=== PATIENT | female | born 1970 | race Caucasian/White ===

== ENCOUNTER 2021-05-23 02:50 | Day surgery (SDC) | payer OTHER, SELFPAY ==
[2021-05-09 15:15] VITALS: BMI 47.8
[2021-05-23 12:02] LABS: Glucose Point of Care 204 mg/dl (65-105)
--- NOTE | 2021-05-23 12:12 | WPDANESEPPF ---
Anes - Initial Pre Proc Eval Procedure: Operation Date: 05/23/21 12:45 Proposed Procedures p Esophagogastroduodenoscopy - Hayden Tirado MD Date/Time: 05/23/21 12:12 Surgeon: Hayden Tirado MD Pre Op Diagnosis: epigastric pain, anemia R10.3 D64.9 Patient Data Age: 50 Gender: F Height: 1.7 m Weight: 136.5 kg Allergies Allergy/AdvReac Type Severity Reaction Status Date / Time Sulfa (Sulfonamide Allergy Mild Rash Verified 05/23/21 11:42 Antibiotics) levofloxacin Allergy Rash Verified 05/23/21 11:42 metronidazole [From Flagyl] Allergy Rash Verified 05/23/21 11:42 meperidine AdvReac Unknown Vomiting Verified 05/23/21 11:42 morphine AdvReac Unknown Vomiting Verified 05/23/21 11:42 Home Medications Medication Instructions Recorded Confirmed Type blood sugar diagnostic #300 each 02/23/20 04/11/21 Rx pen needle, diabetic 31 gauge x See Rx Instructions .ROUTE 06/12/20 04/11/21 Rx 3/16 .COMPLEX #300 each insulin syringe-needle U-100 1 mL #100 ea 10/21/20 04/11/21 Rx 31 gauge x 5/16 buspirone 5 mg tablet 5 mg PO BID #180 tablet 03/06/21 05/09/21 Rx metoprolol tartrate 50 mg tablet 50 mg PO Q12H #180 tablet 03/06/21 05/09/21 Rx amlodipine 5 mg-benazepril 10 mg 1 cap PO DAILY #90 cap 04/07/21 05/09/21 Rx capsule spironolactone 25 mg tablet 25 mg PO DAILY #90 tablet 04/07/21 05/09/21 Rx insulin glargine 100 unit/mL 60 unit SUBCUT DAILY #50 ml 04/11/21 05/09/21 Rx subcutaneous solution omeprazole 20 mg capsule,delayed 20 mg PO DAILY #90 cap 04/11/21 05/09/21 Rx release cholecalciferol (vitamin D3) 1,250 1,250 mcg PO WEEKLY #12 cap 04/18/21 05/09/21 Rx mcg (50,000 unit) capsule citalopram 20 mg tablet 20 mg PO DAILY #90 tablet 04/21/21 05/09/21 Rx insulin lispro 100 unit/mL 14 unit SUBCUT TID #45 ml 04/28/21 05/09/21 Rx subcutaneous pen aspirin 81 mg PO HS 05/09/21 05/09/21 History metformin 2,000 mg PO QHS 05/09/21 05/09/21 History gbrvpqdkkoyl-qmpr-wnyue acid 1 tablet PO DAILY 05/09/21 05/09/21 History [[facility] Women] zolpidem 12.5 mg tablet,extended 12.5 mg PO QHS #90 tablet 05/19/21 Rx release,multiphase Laboratory Tests 05/23/21 11:48 POC Capillary Glucose 204 mg/dl H mg/dl (65-105) Patient hx anesthesia problems: none Family hx anesthesia problems: none PMFSH Past Medical History Medical History (Updated 05/01/21 @ 10:22 by Hayden Tirado MD) Adenomatous colon polyp Colon cancer screening Colon, diverticulosis Diabetic neuropathy Dyslipidemia Fatty liver Gastritis GERD (gastroesophageal reflux disease) IDDM (insulin dependent diabetes mellitus) Insomnia Obesity, morbid, BMI 40.0-49.9 Upper abdominal pain following cholangiogram Family History Family History Grandparent Diabetes mellitus Grandparent Cerebrovascular accident Hypertension Social History Social History Smoking status: Never smoker Second hand tobacco smoke exposure: No Alcohol intake: never Living arrangements: with family Spiritual care concerns: No Anes - Eval Final PreProcedure Day of Procedure 05/23/21 12:12 Patient weight: morbidly obese Heart: regular rate and rhythm Lungs: clear to auscultation Airway: Mallampati scale class III Neurological: alert and oriented Last oral intake: >/= 8 hours ASA classification: III Emergent: no Anesthetic plan: proceed Anesthesia type and monitoring: general GIVS and standard monitoring Informed Consent: The patient's anesthetic plan and its attendant risks and benefits were discussed with the patient/family/POA. Questions were solicited and answers provided to the satisfaction of the patient/family/POA.
[2021-05-23] MEDS: LACTATED RINGERS 1,000 ML 150 ML IV CONT (12:19)
[2021-05-23 12:20] VITALS: BP 173/97; PULSE 89; RESP 18; TEMP 36.1; O2SAT 98
--- NOTE | 2021-05-23 12:44 | WPDHPUPDATE1 ---
History and Physical Update Update Date/Time: 05/23/21 12:44 History and Physical has been reviewed, including an updated exam of the patient. There are NO changes in the patient's condition. Risks, benefits, and alternatives have been discussed and questions answered. Patient agrees to proceed with procedure.
[2021-05-23 13:08] VITALS: BP 113/68; PULSE 82; RESP 18; O2SAT 99
[2021-05-23 13:18] VITALS: BP 112/68; PULSE 80; RESP 20; O2SAT 99
[2021-05-23 13:29] VITALS: BP 126/72; PULSE 84; RESP 24; O2SAT 100
== END 2021-05-23 13:37 | disposition home or self-care (01) ==
PROVIDERS: PCP Family Medicine; Visit Provider Internal Medicine Gastroenterology
PROC: 0DJ08ZZ Inspection of Upper Intestinal Tract, Via Natural or Artificial Opening Endoscopic (ICD-10-PCS; CPT 43235; principal; 2021-05-23 12:45)
DX: D64.9 Anemia, unspecified (principal); K29.50 Unspecified chronic gastritis without bleeding; K44.9 Diaphragmatic hernia without obstruction or gangrene; K21.9 Gastro-esophageal reflux disease without esophagitis; K57.30 Diverticulosis of large intestine without perforation or abscess without bleeding; K76.0 Fatty (change of) liver, not elsewhere classified; E11.40 Type 2 diabetes mellitus with diabetic neuropathy, unspecified; E78.5 Hyperlipidemia, unspecified; E66.01 Morbid (severe) obesity due to excess calories; G47.00 Insomnia, unspecified; R10.13 Epigastric pain; Z86.010 Personal history of colon polyps; Z79.1 Long term (current) use of non-steroidal anti-inflammatories (NSAID)
CPT/HCPCS: 43239; 82948; 88305; 88342; J2704; J7120

== ENCOUNTER 2022-11-20 12:33 | Outpatient (CLI) | payer OTHER, SELFPAY ==
[2022-11-20 18:35] LABS: Basophils Percent Auto 0.5 % (0.2-1.2); Eosinophils Absolute Auto 0.1 K/mm3 (0-0.3); Hematocrit 37.1 % (37.0-47.0); Hemoglobin 11.5 g/dL (12.0-15.0); Immature Granulocyte Absolute 0.02 K/mm3 (0.00-0.031); Immature Granulocyte Percent A 0.2 % (0-0.5); Lymphocytes Absolute Auto 2.53 K/mm3 (0.9-3.2); Lymphocytes Percent Auto 31.3 % (18.3-44.2); Mean Corpuscular Hemoglobin 25.3 pg (26-34); Mean Corpuscular Volume 81.5 fl (80-100); Monocytes Absolute Auto 0.4 K/mm3 (0.1-0.6); Monocytes Percent Auto 4.6 % (2.6-8.5); Neutrophils Percent Auto 62.4 % (45.5-73.1); Platelet Count Result 308 k/mm3 (150-375); Red Blood Count 4.55 M/mm3 (4.2-5.4); Red Cell Distribution Width 16.4 % (11.5-14.5); White Blood Count 8.1 K/mm3 (4.5-10.0)
[2022-11-20 18:45] LABS: Alanine Aminotransferase 25 U/L (6-35); Albumin Level 4.4 g/dL (3.5-5.1); Alkaline Phosphatase 77 U/L (38-126); Anion Gap 9 mmol/L (8-16); Aspartate Amino Transferase 28 U/L (14-36); Bilirubin,Total 0.6 mg/dL (0.2-1.3); Blood Urea Nitrogen 11 mg/dL (7-17); Calcium 9.2 mg/dL (8.4-10.2); Carbon Dioxide 30 mmol/L (22-30); Chloride 98 mmol/L (98-107); Cholesterol 199 mg/dL (0-200); Estimated Glomerular Filt Rate > 60; Glucose 144 mg/dL (65-110); HDL Direct 38 mg/dL; Potassium 4.2 mmol/L (3.4-5.0); Sodium 137 mmol/L (137-145); Triglycerides 211 mg/dL (<150)
[2022-11-20 18:55] LABS: Vitamin D 25 Hydroxy 40.2 ng/mL
[2022-11-20 18:56] LABS: LDL Cholesterol Direct 125 mg/dL
[2022-11-20 19:14] LABS: Thyroid Stimulating Hormone 0.978 uIU/mL (0.465-4.680)
[2022-11-20 19:58] LABS: Creatinine Urine 129.4 mg/dL
[2022-11-20 20:03] LABS: MALB Creatinine Ratio 8.1 mg/g (0-30); Microalbumin Urine Random 10.5 mg/L (0-16.7)
== END 2022-11-20 12:34 | disposition home or self-care (01) ==
LOC: ANHGOSHLAB 12:35
PROVIDERS: PCP Family Medicine; Visit Provider Nurse Practitioner Family
DX: Z00.00 Encounter for general adult medical examination without abnormal findings (principal); I10 Essential (primary) hypertension; E11.9 Type 2 diabetes mellitus without complications; E78.5 Hyperlipidemia, unspecified; E55.9 Vitamin D deficiency, unspecified
CPT/HCPCS: 36415; 80053; 80061; 82043; 82306; 83036; 84443; 85025

== ENCOUNTER 2023-06-18 09:41 | Outpatient (CLI) | payer OTHER, SELFPAY ==
[2023-06-18 16:39] LABS: Basophils Percent Auto 0.4 % (0.2-1.2); Eosinophils Absolute Auto 0.1 K/mm3 (0-0.3); Eosinophils Percent Auto 1.1 % (0-4.4); Hematocrit 35.7 % (37.0-47.0); Hemoglobin 11.1 g/dL (12.0-15.0); Immature Granulocyte Absolute 0.01 K/mm3 (0.00-0.031); Immature Granulocyte Percent A 0.1 % (0-0.5); Lymphocytes Absolute Auto 1.91 K/mm3 (0.9-3.2); Mean Corpuscular HGB Conc 31.1 g/dl (32-36); Mean Corpuscular Hemoglobin 25.9 pg (26-34); Mean Corpuscular Volume 83.4 fl (80-100); Mean Platelet Volume 9.8 fl (7.4-10.4); Monocytes Absolute Auto 0.3 K/mm3 (0.1-0.6); Monocytes Percent Auto 4.4 % (2.6-8.5); Neutrophils Absolute Auto 4.7 K/mm3 (1.3-6.7); Platelet Count Result 298 k/mm3 (150-375); Red Blood Count 4.28 M/mm3 (4.2-5.4); Red Cell Distribution Width 15.9 % (11.5-14.5); White Blood Count 7.1 K/mm3 (4.5-10.0)
[2023-06-18 19:45] LABS: Vitamin D 25 Hydroxy 38.5 ng/mL
[2023-06-18 19:55] LABS: Alanine Aminotransferase 26 U/L (6-35); Albumin Level 4.4 g/dL (3.5-5.1); Alkaline Phosphatase 60 U/L (38-126); Anion Gap 10 mmol/L (8-16); Aspartate Amino Transferase 31 U/L (14-36); Bilirubin,Total 0.4 mg/dL (0.2-1.3); Blood Urea Nitrogen 11 mg/dL (7-17); Carbon Dioxide 27 mmol/L (22-30); Chloride 102 mmol/L (98-107); Cholesterol 188 mg/dL (0-200); Estimated Glomerular Filt Rate > 60; Glucose 132 mg/dL (65-110); HDL Direct 36 mg/dL; Sodium 139 mmol/L (137-145); Triglycerides 192 mg/dL (<150)
[2023-06-18 20:05] LABS: LDL Cholesterol Direct 118 mg/dL
[2023-06-18 20:23] LABS: Thyroid Stimulating Hormone 0.739 uIU/mL (0.465-4.680)
[2023-06-18 20:35] LABS: Hemoglobin A1C 5.9 % (<5.7)
== END 2023-06-18 09:42 | disposition home or self-care (01) ==
LOC: ANHGOSHLAB 09:43
PROVIDERS: PCP Family Medicine; Visit Provider Nurse Practitioner Family
DX: Z00.00 Encounter for general adult medical examination without abnormal findings (principal); Z13.1 Encounter for screening for diabetes mellitus; I10 Essential (primary) hypertension; Z13.21 Encounter for screening for nutritional disorder; Z13.220 Encounter for screening for lipoid disorders; Z13.29 Encounter for screening for other suspected endocrine disorder; E55.9 Vitamin D deficiency, unspecified; Z79.4 Long term (current) use of insulin
CPT/HCPCS: 36415; 80053; 80061; 82306; 83036; 84443; 85025

== ENCOUNTER 2024-12-04 15:15 | Outpatient (CLI) | payer OTHER, SELFPAY ==
--- OUTSIDE RECORDS SUMMARY | 2024-12-04 18:01 | XMS_ITS | Encounter Summary ---
Author Organization [facility] Healthcare Address [address] [place] [address] Care Team Providers Care Builder'S Labourer Name Role Phone Cat Persaud MD Primary Care Provider Encounter Details Date Type Department Care Team (Late st Contact Info) Description 09/24/2020 Telephone [facility] [address] [place] [id number] Ivelisse Mack, RT Social History Tobacco Use Types Packs/Day Years Used Date Smoking Tobacco: Never Smokeless Tobacco: Never Alcohol Use Standard Drinks/Week Comments No 0 (1 standard drink = 0.6 oz pur e alcohol) Comments No Sex and Gender Information Value Date Recorded Sex Assigned at Not on file Legal 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 Author [facility] Chronic Pain Care Plan Chronic Care Management Worsening( 3:31 PM CDT) No Dayanna Stallworth RN Note: Problem: Chronic Pain Goals: 1. Minimize further functional decline 2. Maximize quality of life 3. Control pain Strategies: - Activity/exercise program recommendation - Conservative stepwise pain medicine strategy with multi-disciplinary approach - Recommend healthy lifestyle strategies and compensatory methods as needed Reduce the likelihood of falling Lifestyle No Stephy Reaves, ABRAHAM Note: Below are four things you can do to prevent falls: 1. Begin an exercise program to improve your leg strength & balance 2. Ask your doctor or pharmacist to review your medicines 3. Get annual eye check-ups & update your eyeglasses 4. Make your home safer by: Removing clutter & tripping hazards Putting railings on all stairs & adding grab bars in the bathroom Having good lighting, especially on stairs Contact your local community or senior center for information on exercise, fall prevention programs, or options for improving home safety. documented as of this encounter Visit Diagnoses Not on filedocumented in this encounter Care Teams Builder'S Labourer Relationship Specialty Start Date End Date Cat Persaud MD PCP - General 10/15/17 documented as of this encounter
--- OUTSIDE RECORDS SUMMARY | 2024-12-04 18:01 | XMS_ITS | Clinical Summary ---
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 Name Role Phone Cat Persaud MD Primary Care Provider Allergies Active Allergy Reactions Criticality Noted Date Comments Propoxyphene-Acetaminoph en Vomiting Low 08/09/2019 Meperidine Hives,Nausea only Medium 02/25/2015 Reaction: Hives, , Reaction: Nausea, Metronidazole Hives Medium Levofloxacin Swelling,Angioedema High 10/22/2023 Morphine Hives,Nausea only Reaction: Hives, , Reaction: Nausea, Sulfanilamide Hives Reaction: Hives, Medications amlodipine-virginia zepril (LOTREL 5-10) 5-10 mg per capsule take 1 capsule by oral route every day 0 0 4 Active blood glucose diagnostic (ACCU-CHEK VANESSA) strip CHECK BLOOD SUGAR FOUR TIMES A DAY 150 Container 5 3 Active insulin lispro (HumaLOG KwikPen) 100 unit/mL insulin pen inject 14units tid daily 3 Box 3 5 Active Additional Information Patient taking differently: (No dose reported), subcutaneous, 10-12 units per meal 3x a day - sliding scale , Indications: type 2 diabetes mellitus, Informant: Self, Reported on 11/14/2024 citalopram (CeleXA) 20 mg tabletIndicatio ns:Anxiety with Depression Take 1 tablet (20 mg total) by mouth every morning Active spironolactone (ALDACTONE) 25 mg tabletIndicatio ns:swelling Take 1 tablet (25 mg total) by mouth furniture sales consultant before breakfast Active metoprolol tartrate (LOPRESSOR) 50 mg immediate release tabletIndicatio ns:hypertension Take 1 tablet (50 mg total) by mouth 2 (two) times a day 0 Active BD Ultra-Fine Mini Pen Needle 31 gauge x 3/16 needle 0 Active BD Insulin Syringe Ultra-Fine 1 mL 31 gauge x 5/16 syringe 0 Active SEMGLEE-yfgn 100 unit/mL (3 mL) pen for injectionIndica tions:dm2 Inject 30 Units under the skin furniture sales consultant before breakfast 2 Active buPROPion (WELLBUTRIN) 75 mg tabletIndicatio ns:Anxiety with Depression Take 1 tablet (75 mg total) by mouth furniture sales consultant before breakfast 2 Active zolpidem CR (AMBIEN CR) 12.5 mg CR tabletIndicatio ns:Insomnia Take 1 tablet (12.5 mg total) by mouth nightly 3 Active Ozempic 1 mg/dose (4 mg/3 mL) pen injector injectionIndica tions:Weight Loss Management for Obese Patient (BMI >= 30) Inject 1 mg under the skin once a week Wednesday 4 Active pregabalin (LYRICA) 75 mg capsule Take 1 capsule (75 mg total) by mouth 2 (two) times a day 28 capsule 4 Active metFORMIN (FORTAMET) 500 mg 24 hr tabletIndicatio ns:type 2 diabetes mellitus Take 2 tablets (1,000 mg total) by mouth nightly Take 2 tablets daily 4 Active omeprazole (PriLOSEC) 20 mg capsuleIndicati ons:gerd Take 1 capsule (20 mg total) by mouth furniture sales consultant before breakfast 4 Active busPIRone (BUSPAR) 5 mg tabletIndicatio ns:Generalized Anxiety Disorder Take 1 tablet (5 mg total) by mouth 2 (two) times a day 4 Active acetaminophen (TYLENOL) 500 mg tablet Take 2 tablets (1,000 mg total) by mouth every 8 (eight) hours 90 tablet 4 Active aspirin 81 mg enteric coated tablet Take 1 tablet (81 mg total) by mouth 2 (two) times a day 60 tablet 4 Active senna-docusate (PERICOLACE) 8.6-50 mg Take 2 tablets by mouth 2 (two) times a day May increase to 4 tablets twice daily if needed. HOLD medication for diarrhea. 80 tablet 1 4 Active Additional Information Patient not taking.Reported on 11/14/2024 meloxicam (MOBIC) 15 mg tablet Take 1 tablet (15 mg total) by mouth daily 30 tablet 4 Active Additional Information Patient not taking.Reported on 11/14/2024 cefadroxil (DURICEF) 500 mg capsule Take 1 capsule (500 mg total) by mouth 2 (two) times a day 28 capsule 4 Active hydrOXYzine (VISTARIL) 50 mg capsule Take 1 capsule (50 mg total) by mouth every 6 (six) hours as needed (Pain) 60 capsule 4 Active Additional Information Patient not taking.Reported on 11/14/2024 nitrofurantoin monohydrate (MACROBID) 100 mg capsule TAKE 1 CAPSULE BY MOUTH EVERY 12 HOURS WITH FOOD FOR 7 DAYS 4 Active cephalexin (KEFLEX) 500 mg capsule Take 1 capsule (500 mg total) by mouth 2 (two) times a day 4 Active traMADoL (ULTRAM) 50 mg tabletIndicatio ns:Status post right hip replacement Take 1 tablet (50 mg total) by mouth every 6 (six) hours as needed for pain (1st line for pain) 40 tablet 4 Active Additional Information Patient not taking.Reported on 11/14/2024 oxyCODONE (ROXICODONE) 5 mg immediate release tabletIndicatio ns:Pain Take 1 tablet (5 mg total) by mouth every 4 (four) hours as needed for pain (2nd line for pain. May repeat in 1 hour for uncontrolled or increasing pain. MAX 2 tablets within 4 hours.) 30 tablet 4 Active Additional Information Patient not taking.Reported on 11/14/2024 Active Problems Problem Noted Date Diagnosed Date Osteoarthritis of right hip, unspecified osteoarthritis type 11/10/2023 HTN (hypertension) 11/02/2023 Class 3 severe obesity in adult 11/02/2023 Primary osteoarthritis of right hip 10/19/2023 Other spondylosis with radiculopathy, lumbar reg ion 10/20/[address] scan 06/10/2021 BMI 45.0-49.9, adult ([facility]) 03/29/2020 Bilateral hip pain 08/10/2019 Osteoarthritis of both hips 08/10/2019 Primary osteoarthritis of both knees 06/13/2019 Osteoarthritis resulting from right hip dysplasi a 06/13/2019 Chronic bilateral low back pain with right-sided sciatica 05/18/2018 Lumbar disc displacement without myelopathy 04/21 DDD (degenerative disc disease), lumbar 05/18/20 18 Arthritis 02/25/2015 Headache(784.0) 02/25/2015 Hiatal hernia 02/25/2015 Mitral valve disease 02/25/2015 Type 2 diabetes mellitus 02/03/2014 Overview (12/24/2016): DMII WO CMP UNCNTRLD Tear of lateral cartilage or meniscus of knee, c urrent 10/20/2013 Overview (12/24/2016): TEAR LAT MENISC KNEE-CUR Current tear of medial cartilage AND/OR meniscus of knee 10/20/2013 Overview (12/24/2016): TEAR MED MENISC KNEE-CUR Knee pain 10/20/2013 Overview (12/24/2016): Pain in knee Acne 10/27/2011 Resolved Problems Problem Noted Date Diagnosed Date Resolved Date Chronic pain 02/25/2015 10/20/2022 Encounters Date Type Department Care Team Description 11/14/2024 1:45 PM PRODUCT REPRESENTATIVE Office Visit [facility] Orthopaedic Surgery [address] [facility] Medical Office Building [address] [place] [id number] Wilfred Roberts MD History of arthroplasty of right hip (Primary Dx) 11/14/2024 1:15 PM PRODUCT REPRESENTATIVE - 11/14/2024 11:59 PM PRODUCT REPRESENTATIVE Hospital Encounter [facility] [address] [place] [id number] History of arthroplasty of right hip Discharge Disposition: Discharge to home or self care 10/08/2024 4:02 PM PRODUCT REPRESENTATIVE - 10/08/2024 11:59 PM PRODUCT REPRESENTATIVE Hospital Encounter [id number] [place] [address] Upper abdominal pain, unspecified Discharge Disposition: Discharge to home or self care from Last 3 Months Immunizations Immunization Administration Dates Next Due Tdap 12/30/2016 Surgical History Surgery Date Site/Laterality Comments HYSTERECTOMY 09/20/2005 - 09/19/2006 Hysterectomy CHOLECYSTECTOMY 09/20/2007 - 09/19/2008 Cholecystectomy [place] NJX AA&/STRD TFRML EPI LUMBAR/SACRAL 1 LEVEL Corticosteroid Inj Transforaminal Approach Lumbar W/ Fluoroscopic Guidance - (Added by TW Conv) BREAST BIOPSY Left FLUORO GUIDED ASPIRATION OR INJECTION LARGE JOINT BILATERAL 06/03/2022 Bilateral Medical History Medical History Date Comments Hypertension Hypertension Type 2 diabetes mellitus (HCC) D iabetes type 2 Hx Other Medical hiatal hernia Hx Other Medical neuropathy of f eet Diabetes mellitus (HCC) Diabetes Gastroesophageal reflux disease GERD Atrial fibrillation (HCC) Atrial fibrillation Fibrocystic breast Low back pain Anxiety Hypertension Anemia 1994 Arthritis 1999 Depression 2008 PONV (postoperative nausea and vomiting) Motion sickness Family History Medical History Relation Name Comments Coronary artery disease Father Rex nary artery disease; Diabetes Maternal Grandmother Tory Early Maternal Grandmother Tory Stroke Maternal Grandmother Tory Cancer Other 1 Family history of Cancer; Diabetes Other 2 Family history of Diabetes mellitus; Gout Other 3 Family history of Gout; Heart disease Other 4 Family history of Heart disease; Hypertension Other 5 Family history of Hypertension; Kidney disease Other 6 Family histor y of Renal disease; Stroke Other 7 Family history of Stroke; Relation Name Status Comments Father Maternal Grandmother Tory Other 1 Other 2 Other 3 Other 4 Other 5 Other 6 Other 7 Social History Tobacco Use Types Packs/Day Years Used Date Smoking Tobacco: Never Smokeless Tobacco: Never Tobacco Cessation:Counseling Given: Not Answered Alcohol Use Standard Drinks/Week Comments No 0 (1 standard drink = 0.6 oz pur e alcohol) AUDIT-C Answer Date Recorded Q1: How often do you have a drink containing alc ohol? Monthly or less 11/10/2023 Average Number of Drinks Not on file 024 Frequency of Binge Drinking Not on file 10/22 Personal Safety Answer Date Recorded Have you ever been in or are you currently in a harmful physical or emotional relationship or is someone making you feel afraid or unsafe? Denies 11/10/2023 Comments No Sex and Gender Information Value Date Recorded Sex Assigned at Not on file Legal Sex Female 8:12 AM PRODUCT REPRESENTATIVE Gender Identity Female 07/11/2024 2:34 PM CDT Sexual Orientation Straight 09/02/2020 1: 24 PM PRODUCT REPRESENTATIVE Obstetrics History Para Term AB IAB SAB Ectopic Multiple Livin g Live Births 0 Last Filed Vital Signs Vital Sign Reading Time Taken Comments Blood Pressure 126/76 11/11/2023 8:25 AM PRODUCT REPRESENTATIVE Pulse 58 11/11/2023 8:25 AM PRODUCT REPRESENTATIVE Temperature 36.6 C (97.9 F) 11/11/2023 7:31 AM PRODUCT REPRESENTATIVE Respiratory Rate 16 11/11/2023 7:31 AM PRODUCT REPRESENTATIVE Oxygen Saturation 72% 11/11/2023 8:25 AM PRODUCT REPRESENTATIVE Inhaled Oxygen Concentration - - Weight 120.7 kg (266 lb) 11/14/2024 2:36 PM PRODUCT REPRESENTATIVE Height 167.6 cm (5' 6 ) 11/14/2024 2:36 PM PRODUCT REPRESENTATIVE Body Mass Index 42.93 11/14/2024 2:36 PM PRODUCT REPRESENTATIVE Plan of Treatment Health Maintenance Due Date Last Done Comments Colon Cancer Screening-Colonoscopy 1968 Depression Screening 1968 Hepatitis C Screening 1968 Dilated Eye Exam 1968 Foot Exam 1968 Hepatitis B Screening 1986 Regular Well Visit/Exam 18-64 1986 Pneumococcal vaccine <65 (1 of 2 - PCV) 1987 Zoster Vaccine (1 of 2) 2018 Breast Cancer Screening-Mammogram 03/29/2020 019, 10/18/2013 Albumin Creatinine Ratio, Urine 08/09/2021 , 03/14/2019 Lipid Panel 08/09/2021 08/09/2020, 02/19, 10/14/2017, Additional history exists Hemoglobin A1C 04/21/2024 10/22/2023, 07/22, 03/14/2019, Additional history exists Influenza Vaccine (#1) 2024 eGFR 11/11/2024 11/11/2023, 10/2023, 08/09/2020, Additional history exists DTaP/Tdap/Td Vaccine (2 - Td or Tdap) 12/30/2026 12/30/2016 Goals Goal Patient Goal Type Associated Problems Recent Progress Patient-Stated? Author CCM Chronic Pain Care Plan Chronic Care Management Worsening( 3:31 PM CDT) No Dayanna Stallworth, RN Note: Problem: Chronic Pain Goals: 1. [...] programs, or options for improving home safety. Medical Devices Implanted Type Area Diesel Mechanic Construction Device Identifier Shelf Expiration Date Model / Serial / Lot [employer] Shell Acetabular Trident Ii Tritanium D Od50mm Hip 3 Screw Hole Cluster Sterile 702-04-50d - [id number] Implanted:Qty: 1 on 11/10/2023 by Wilfred Roberts MD at [facility] Other - see comments Right: Hip [employer] [id number] 09/21/2028 702-04-50D / / [id number] Description:Implant pause pe rformed prior to opening to sterile field [employer] Insert Trident 0deg 36mm 723-00-36d - Sna - [id number] Implanted:Qty: 1 on 11/10/2023 by Wilfred Roberts MD at [facility] Other - see comments Right: Hip [employer] [id number] 09/01/2028 723-00-36D / NA / [id number] Description:Implant Pause Pe rformed [employer] Stem Femoral Hip Collared Insignia [id number] High Offset Size 5 [id number] - Sna - [id number] Implanted:Qty: 1 on 11/10/2023 by Wilfred Roberts MD at [facility] Other - see comments Right: Hip [employer] [id number] 08/24/2028 [id number] / NA / [id number] Description:Implant Pause Pe rformed [employer] V40 36mm Anatomic Hip -5mm Offset Taper Head Femoral [employer] Delta [id number] - Sna - [id number] Implanted:Qty: 1 on 11/10/2023 by Wilfred Roberts MD at [facility] Other - see comments Right: Hip [employer] [id number] 04/06/2028 [id number] / NA / [id number] Description:Implant Pause Pe rformed Procedures Procedure Name Priority Date/Time Associated Diagnosis Comments XR HIP RIGHT W PELVIS 2 OR 3 VIEWS Schedule Routine, Read Routine (OP Routine) 11/14/2024 1:58 PM PRODUCT REPRESENTATIVE History of arthroplasty of right hip CT ABDOMEN WO CONTRAST Schedule Routine, Read Routine (OP Routine) 10/08/2024 4:14 PM PRODUCT REPRESENTATIVE Upper abdominal pain, unspecified EGFR Routine 11/11/2023 4:18 AM PRODUCT REPRESENTATIVE HEMOGLOBIN A1C Routine 10/22/2023 3:52 PM PRODUCT REPRESENTATIVE Primary osteoarthritis of right hip ALBUMIN CREATININE RATIO, URINE Routine 08/09/2020 8:38 AM PRODUCT REPRESENTATIVE LIPID PANEL Routine 08/09/2020 8:33 AM PRODUCT REPRESENTATIVE SCREENING MAMMOGRAM BILATERAL W FREDI Schedule Routine, Read Routine (OP Routine) 03/29/2019 3:47 PM CDT Encounter for screening mammogram for malignant neoplasm of breast from Last 3 Months or Most Recently Relevant to Health Maintenance Results * XR Hip Right 2 or 3 Views W Pelvis (11/14/2024 1:58 PM PRODUCT REPRESENTATIVE) Anatomical Region Laterality Modality Lower Extremities, Hip, Pelvis Right C omputed Radiography 11/14/2024 2:01 PM PRODUCT REPRESENTATIVE Impressions 11/14/2024 2:01 PM PRODUCT REPRESENTATIVE 1. Right total hip arthroplasty in unchanged near-anatomic position. Electronically signed by: Siddharth Orona D.O. Narrative 11/14/2024 2:01 PM PRODUCT REPRESENTATIVE EXAMINATION: XR HIP RIGHT 2 OR 3 VIEWS W PELVIS HISTORY: pain FINDINGS: Comparison is made to 12/28/2023 radiograph. Right total hip arthroplasty in unchanged near-anatomic position without evidence of component failure, periprosthetic fracture, or osteolysis. No dislocation. Procedure Note Siddharth Orona, DO - 11/14/2024 EXAMINATION: XR HIP RIGHT 2 OR 3 VIEWS W PELVIS HISTORY: pain FINDINGS: Comparison is made to 12/28/2023 radiograph. Right total hip arthroplasty in unchanged near-anatomic position without evidence of component failure, periprosthetic fracture, or osteolysis. No dislocation. IMPRESSION: 1. Right total hip arthroplasty in unchanged near-anatomic position. Electronically signed by: Siddharth Orona D.O. Wilfred Roberts MD IMG XR PROCEDURES Fi nal Result * CT Abdomen WO Contrast (10/08/2024 4:14 PM PRODUCT REPRESENTATIVE) Anatomical Region Laterality Modality Body N/A Computed Tomogra phy 10/09/2024 2:13 PM PRODUCT REPRESENTATIVE Narrative 10/09/2024 2:14 PM PRODUCT REPRESENTATIVE EXAM DESCRIPTION: CT ABDOMEN WO CONTRAST REASON FOR STUDY: upper abdominal pain unspecified Upper abdomen pain x months TECHNIQUE: CT scan of the abdomen performed without intravenous and without oral contrast using helical scanning technique. Reconstructed coronal and sagittal MPR images reviewed. All images stored on PACS. Automated exposure control was used as a dose optimization technique for this examination. COMPARISON: CT abdomen and pelvis 06/12/2014 REFERENCE: Per ACR white paper recommendations, unless otherwise specified no follow-up imaging is recommended for incidental renal and adrenal lesions per consensus recommendations based on imaging criteria. Further lab evaluation could be pursued based on clinical findings. FINDINGS: The sensitivity for detection of visceral lesions is diminished without the use of intravenous contrast. LOWER CHEST: No acute findings. LIVER: Normal length. GALLBLADDER: Absent. SPLEEN: Normal length. PANCREAS: No peripancreatic inflammation or fluid collection. ADRENALS: No adrenal mass. KIDNEYS/URINARY TRACT: No hydronephrosis. Nonobstructing 4.5 mm left renal calculus. GI: No obstruction of the visualized portion. PERITONEUM: Colonic diverticula without acute diverticulitis. The visualized appendix is normal. VASCULATURE: No abdominal aortic aneurysm. MUSCULOSKELETAL: No acute skeletal abnormality. OTHER: No other acute findings. IMPRESSION: No acute findings. Left nephrolithiasis. Colonic diverticulosis. THIS IS AN ELECTRONICALLY VERIFIED FINAL REPORT 10/09/2024 2:14 PM - Electronically signed by Sammy Thomas M.D. JR: Report ID: [id number] Reading Location: [place] [address] Procedure Note Sammy Thomas MD - 10/09/2024 EXAM DESCRIPTION: CT ABDOMEN WO CONTRAST REASON FOR STUDY: upper abdominal pain unspecified Upper abdomen pain x months TECHNIQUE: CT scan of the abdomen performed without intravenous andwithout oral contrast using helical scanning technique. Reconstructed coronal and sagittal MPR images reviewed. All images stored on PACS. Automatedexposure control was used as a dose optimization technique for this examination. COMPARISON: CT abdomen and pelvis 06/12/2014 REFERENCE: Per ACR white paper recommendations, unless otherwise specifiedno follow-up imaging is recommended for incidental renal and adrenal lesionsper consensus recommendations based on imaging criteria. Further labevaluation could be pursued based on clinical findings. FINDINGS: The sensitivity for detection of visceral lesions is diminished without the use of intravenous contrast. LOWER CHEST: No acute findings. LIVER: Normal length. GALLBLADDER: Absent. SPLEEN: Normal length. PANCREAS: No peripancreatic inflammation or fluid collection. ADRENALS: No adrenal mass. KIDNEYS/URINARY TRACT: No hydronephrosis. Nonobstructing 4.5 mm leftrenal calculus. GI: No obstruction of the visualized portion. PERITONEUM: Colonic diverticula without acute diverticulitis. Thevisualized appendix is normal. VASCULATURE: No abdominal aortic aneurysm. MUSCULOSKELETAL: No acute skeletal abnormality. OTHER: No other acute findings. IMPRESSION: No acute findings. Left nephrolithiasis. Colonic diverticulosis. THIS IS AN ELECTRONICALLY VERIFIED FINAL REPORT 10/09/2024 2:14 PM - Electronically signed by Sammy Thomas M.D. JR: Report ID: [id number] Reading Location: [place] [address] us Mayela Aldana NURSE'S AIDES TEACHER IMG CT PROCEDURES Final Resul t * eGFR (11/11/2023 4:18 AM PRODUCT REPRESENTATIVE) eGFR 102 mL/min/1. 73 m2 LETITIA GRECOCH Comment: Interpretive Data Reference Interval Normal >/= 90 mL/min/1.73m2 Mildly decreased* 60 - 89 mL/min/1.73m2 Mildly to moderately decreased 45 - 59 mL/min/1.73m2 Moderately to severely decreased 30 - 44 mL/min/1.73m2 Severely decreased 15 - 29 mL/min/1.73m2 Kidney Failure < 15 mL/min/1.73m2 *Relative to young adult level Estimated glomerular filtration rate is determined by the 2020 CKD-EPI equation recommended by the National Kidney Foundation (A Unifying Approach to GFR Estimation: Recommendations of the NKF-ASK Task Force on Reassessing the Inclusion of Race in Diagnosing Kidney Disease, JASN 2020). The CKD-EPI equation should not be used for patients with unstable renal function and has not been validated in children and those over 70. Current interpretive data was last reviewed 2021. Blood 11/11/2023 4:18 AM PRODUCT REPRESENTATIVE 11/11/2023 4:21 AM PRODUCT REPRESENTATIVE us Jerry Ye MD LAB BLOOD ORDERABLES Final R esult LETITIA DAVILACH [address] [facility] eyes[place] [address] 861 * (ABNORMAL) Hemoglobin A1c (10/22/2023 3:52 PM PRODUCT REPRESENTATIVE) Hgb A1C 5.8(H) 4.0 - 5.6 % LETITIA BHANDARI Estimated Average Glucose 120 mg/dL LETITIA BHANDARI Comment: The ADA recommends reporting an estimated Average Glucose (eAG) with all Hemoglobin A1c results using the equation derived from a study of 507 normal and diabetic adults. Minority populations were underrepresented and children were not included. (Diabetes Care 31:7821-7247, 2008). The eAG is not equivalent to a fasting glucose. Blood 10/22/2023 3:52 PM PRODUCT REPRESENTATIVE 10/22/2023 4:58 PM PRODUCT REPRESENTATIVE us Wilfred Roberts MD LAB BLOOD ORDERABLES Final Result Performing Organization Address [facility] Phone Number [facility] [address] [facility] [place] [address] * Albumin Creatinine Ratio, Urine (08/09/2020 8:38 AM PRODUCT REPRESENTATIVE) Albumin Ur 23.3 mg/L [facility] (SIL) Comment: Interpretive Data No reference range established. Current interpretive data was last revised 2019. Testing performed by: [address] [address] Creatinine Ur 159.8 mg/dL [facility] (SIL) Comment: Interpretive Data No reference range established. Current interpretive data was last revised 2019. Testing performed by: [address] [address] Albumin Creatinine Ratio, Ur 15 1 - 29 mg/g [facility] (SIL) Comment:Testing performed by : [address] [address] Urine 08/09/2020 8:38 AM PRODUCT REPRESENTATIVE 08/09/2020 12:22 PM PRODUCT REPRESENTATIVE Cat Persaud MD LAB URINE ORDERABLES F inal Result LETITIA LITTLE (SIL) 1 [facility] Department [place] [address] * (ABNORMAL) Lipid panel (08/09/2020 8:33 AM PRODUCT REPRESENTATIVE) Cholesterol 192 30 - 199 mg/dL LETITIA LITTLE (SIL) Comment: Interpretive Data Ages < or = 19 years Acceptable: <170 mg/dL Borderline high: 170-199 mg/dL High: >or= 200 mg/dL Ages > or = 20 years Desirable: <200 mg/dL Borderline high: 200-239 mg/dL High: >or= 240 mg/dL Literature References: 1. Expert Panel on Integrated Guidelines for Cardiovascular Health and Risk Reduction in Children and Adolescents. Pediatrics 2011;128:S213 2. NCEP Expert Panel. Circulation 2004;110:227 Current Interpretive Data was last revised on 2018. Triglycerides 166(H) <=149 mg/dL LETITIA LITTLE (SIL) Comment: Interpretive Data Ages < or = 9 years Acceptable: <75 mg/dL Borderline high: 75-99 mg/dL High: >or= 100 mg/dL Ages 10 to 20 years Acceptable: <90 mg/dL Borderline high: 90-129 mg/dL High: >or= 130 mg/dL Ages > or = 20 years Desirable: <150 mg/dL Borderline high: 150-199 mg/dL High: 200-499 mg/dL Very high: >or= 499 mg/dL Literature References: 1. Expert Panel on Integrated Guidelines for Cardiovascular Health and Risk Reduction in Children and Adolescents. Pediatrics 2011;128:S213 2. NCEP Expert Panel. Circulation 2004;110:227 Current Interpretive Data was last revised on 2018. HDL 52 >=40 mg/dL LETITIA LITTLE (SIL) Comment: Interpretive Data Ages < or = 19 years Acceptable: >45 mg/dL Borderline low: 40-45 mg/dL Low: <40 mg/dL Ages > or = 20 years Desirable: >or= 60 mg/dL Low: <40 mg/dL Literature References: 1. Expert Panel on Integrated Guidelines for Cardiovascular Health and Risk Reduction in Children and Adolescents. Pediatrics 2011;128:S213 2. NCEP Expert Panel. Circulation 2004;110:227 Current Interpretive Data was last revised on 2018. LDL, calculated 107 <=129 mg/dL LETITIA LITTLE (GOSHEN) Comment: Interpretive Data Ages < or = 19 years Acceptable: <110 mg/dL Borderline high: 110-129 mg/dL High: >or= 130 mg/dL Ages > or = 20 years Optimal: <100 mg/dL Near optimal: 100-129 mg/dL Borderline high: 130-159 mg/dL High: >160 mg/dL Literature References: 1. Expert Panel on Integrated Guidelines for Cardiovascular Health and Risk Reduction in Children and Adolescents. Pediatrics 2011;128:S213 2. NCEP Expert Panel. Circulation 2004;110:227 Current Interpretive Data was last revised on 2018. Non-HDL Cholesterol 140 mg/dL LETITIA LITTLE (SIL) Comment: Interpretive Data Ages < or = 19 years Acceptable: <120 mg/dL Borderline high: 120-144 mg/dL High: >145 mg/dL Ages > or = 20 years When triglycerides are >200 mg/dL, Non-HDL cholesterol is a secondary target of therapy with treatment goals that are 30 mg/dL greater than the LDL cholesterol target. Literature References: 1. Expert Panel on Integrated Guidelines for Cardiovascular Health and Risk Reduction in Children and Adolescents. Pediatrics 2011;128:S213 2. NCEP Expert Panel. Circulation 2004;110:227 Current Interpretive Data was last revised on 2018. Chol/HDL ratio 4 OFELIA LITTLE (SIL) Blood specimen (specimen) 08/09/2020 8:33 AM PRODUCT REPRESENTATIVE 08/09/2020 8:36 AM PRODUCT REPRESENTATIVE us Cat Persaud MD LAB BLOOD ORDERABLES F inal Result LETITIA LITTLE (GOSHEN) 1 [facility] Department of Laboratories [place], [place] [id number] * Screening Mammogram Bilateral W Fredi (03/29/2019 3:47 PM CDT) Anatomical Region Laterality Modality Breast Bilateral Mammography 03/30/2019 7:25 AM CDT Impressions 03/30/2019 7:28 AM CDT 1. BENIGN FINDINGS. 2. ANNUAL FOLLOW-UP RECOMMENDED. BI-RADS 2 Electronically signed by: Colten Terry 03/30/2019 7:28 AM CDT SCREENING MAMMOGRAM BILATERAL W FREDI HISTORY: Encounter for screening mammogram for malignant neoplasm of breast. TECHNIQUE: 2 views of each breast were obtained with bilateral breast tomosynthesis. COMPARISON: 10/18/2013. FINDINGS: Scattered parenchymal densities bilaterally. No suspicious mass or calcification is seen to suggest mammographic evidence of malignancy. A few benign calcifications. Digital technology was employed plus computer aided detection software (R2) was utilized in interpretation of these images. This facility utilizes a reminder system to notify patient's of yearly mammograms. 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
--- OUTSIDE RECORDS SUMMARY | 2024-12-04 18:01 | XMS_ITS | Encounter Summary ---
Author Organization [facility] Healthcare Address [address] [place] [address] Care Team Providers Care Fruit Loader Machine Operator Name Role Phone Cat Persaud MD Primary Care Provider Encounter Details Date Type Department Care Team (Late st Contact Info) Description 10/12/2019 Telephone [facility] at [address] [place] [address] Chelita Martinez MD [address] [phone] [place] [address] Social History Tobacco Use Types Packs/Day Years Used Date Smoking Tobacco: Never Smokeless Tobacco: Never Alcohol Use Standard Drinks/Week Comments No 0 (1 standard drink = 0.6 oz pur e alcohol) Comments No Sex and Gender Information Value Date Recorded Sex Assigned at Not on file Legal Sex Female 8:12 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
--- OUTSIDE RECORDS SUMMARY | 2024-12-04 18:01 | XMS_ITS | Referral Summary ---
Author Organization [facility] Address [address] [place] [address] Care Team Providers Care Harvesting Contractor Name Role Phone Cat Persaud MD Primary Care Provider Encounters Date Type Department Care Team Description 11/14/2024 1:15 PM MORTGAGE COLLECTOR - 11/14/2024 11:59 PM MORTGAGE COLLECTOR Hospital Encounter [facility] [address] [place] [address] [address] [place] [address] History of arthroplasty of right hip Discharge Disposition: Discharge to home or self care 11/14/2024 1:45 PM MORTGAGE COLLECTOR Office Visit [facility] [address] [facility] [address] [place] [address] Wilfred Roberts MD History of arthroplasty of right hip (Primary Dx) 10/08/2024 4:02 PM MORTGAGE COLLECTOR - 10/08/2024 11:59 PM MORTGAGE COLLECTOR Hospital Encounter [address] [address] Upper abdominal pain, unspecified Discharge Disposition: Discharge to home or self care from Last 3 Months Allergies Active Allergy Reactions Criticality Noted Date [...] 1 tablet (25 mg total) by mouth hydro station supervisor before breakfast Active metoprolol tartrate (LOPRESSOR) 50 [...] tions:dm2 Inject 30 Units under the skin hydro station supervisor before breakfast 2 Active buPROPion (WELLBUTRIN) 75 mg tabletIndicatio ns:Anxiety with Depression Take 1 tablet (75 mg total) by mouth hydro station supervisor before breakfast 2 Active zolpidem CR (AMBIEN [...] 1 capsule (20 mg total) by mouth hydro station supervisor before breakfast 4 Active busPIRone (BUSPAR) 5 [...] Abnormal CT scan 06/10/2021 BMI 45.0-49.9, adult ([facility] 03/29/2020 Bilateral hip pain 08/10/2019 Osteoarthritis [...] Date Resolved Date Chronic pain 02/25/2015 10/20/2022 Immunizations Immunization Administration Dates Next Due Tdap 12/30/2016 Social History Tobacco Use Types Packs/Day Years [...] on file Legal Sex Female 8:12 AM MORTGAGE COLLECTOR Gender Identity Female 07/11/2024 2:34 PM CDT Sexual Orientation Straight 09/02/2020 1: 24 PM MORTGAGE COLLECTOR Last Filed Vital Signs Vital Sign Reading Time Taken Comments Blood Pressure 126/76 11/11/2023 8:25 AM MORTGAGE COLLECTOR Pulse 58 11/11/2023 8:25 AM MORTGAGE COLLECTOR Temperature 36.6 C (97.9 F) 11/11/2023 7:31 AM MORTGAGE COLLECTOR Respiratory Rate 16 11/11/2023 7:31 AM MORTGAGE COLLECTOR Oxygen Saturation 72% 11/11/2023 8:25 AM MORTGAGE COLLECTOR Inhaled Oxygen Concentration - - Weight 120.7 kg (266 lb) 11/14/2024 2:36 PM MORTGAGE COLLECTOR Height 167.6 cm (5' 6 ) 11/14/2024 2:36 PM MORTGAGE COLLECTOR Body Mass Index 42.93 11/14/2024 2:36 PM MORTGAGE COLLECTOR Plan of Treatment Not on file Goals Goal Patient Goal Type Associated Problems [...] on stairs Contact your local community or [facility] for information on exercise, fall prevention programs, or options for improving home safety. Medical Devices Implanted Type Area Processing Mgr Device Identifier Shelf Expiration Date Model / Serial / Lot [employer] Shell Acetabular Trident Ii Tritanium D Od50mm Hip 3 Screw Hole Cluster Sterile 702-04-50d - [id number] Implanted:Qty: 1 on 11/10/2023 by Wilfred Roberts MD at [facility] Other - see comments Right: Hip [employer] [id number] 09/21/2028 702-04-50D / / [id number] Description:Implant pause pe rformed prior to opening to sterile field [employer] Insert Trident 0deg 36mm 723-00-36d - Sna - [id number] Implanted:Qty: 1 on 11/10/2023 by Wilfred Roberts MD at [facility] Other - see comments Right: Hip [employer] [id number] 09/01/2028 723-00-36D / NA / [id number] Description:Implant Pause Pe rformed [employer] Stem Femoral Hip Collared Insignia 38.5d873dh High Offset Size 5 [id number] - Sna - [id number] Implanted:Qty: 1 on 11/10/2023 by Wilfred Roberts MD at [facility] Other - see comments Right: Hip [employer] [id number] 08/24/2028 1228-1079 / NA / [id number] Description:Implant Pause Pe rformed [employer] V40 36mm Anatomic Hip -5mm Offset Taper Head Femoral [employer] Delta [id number] - Sna - [id number] Implanted:Qty: 1 on 11/10/2023 by Wilfred Roberts MD at [facility] Other - see comments Right: Hip [employer] [id number] 04/06/2028 [id number] / NA / [id number] Description:Implant Pause Pe rformed Procedures Procedure Name Priority Date/Time Associated Diagnosis Comments XR HIP RIGHT W PELVIS 2 OR 3 VIEWS Schedule Routine, Read Routine (OP Routine) 11/14/2024 1:58 PM MORTGAGE COLLECTOR History of arthroplasty of right hip CT ABDOMEN WO CONTRAST Schedule Routine, Read Routine (OP Routine) 10/08/2024 4:14 PM MORTGAGE COLLECTOR Upper abdominal pain, unspecified EGFR Routine 11/11/2023 4:18 AM MORTGAGE COLLECTOR HEMOGLOBIN A1C Routine 10/22/2023 3:52 PM MORTGAGE COLLECTOR Primary osteoarthritis of right hip ALBUMIN CREATININE RATIO, URINE Routine 08/09/2020 8:38 AM MORTGAGE COLLECTOR LIPID PANEL Routine 08/09/2020 8:33 AM MORTGAGE COLLECTOR SCREENING MAMMOGRAM BILATERAL W FREDI Schedule Routine, Read Routine (OP Routine) 03/29/2019 3:47 PM CDT Encounter for screening mammogram for malignant neoplasm of breast from Last 3 Months or Most Recently Relevant to Health Maintenance Results * XR Hip Right 2 or 3 Views W Pelvis (11/14/2024 1:58 PM MORTGAGE COLLECTOR) Anatomical Region Laterality Modality Lower Extremities, Hip, Pelvis Right C omputed Radiography 11/14/2024 2:01 PM MORTGAGE COLLECTOR Impressions 11/14/2024 2:01 PM MORTGAGE COLLECTOR 1. Right total hip arthroplasty in unchanged near-anatomic position. Electronically signed by: Siddharth Orona D.O. Narrative 11/14/2024 2:01 PM MORTGAGE COLLECTOR EXAMINATION: XR HIP RIGHT 2 OR 3 [...] CT Abdomen WO Contrast (10/08/2024 4:14 PM MORTGAGE COLLECTOR) Anatomical Region Laterality Modality Body N/A Computed Tomogra phy 10/09/2024 2:13 PM MORTGAGE COLLECTOR Narrative 10/09/2024 2:14 PM MORTGAGE COLLECTOR EXAM DESCRIPTION: CT ABDOMEN WO CONTRAST REASON [...] by Sammy Thomas M.D. JR: Report ID: [id number] Reading Location: [id number] Procedure Note Sammy Thomas MD - 10/09/2024 [...] by Sammy Thomas M.D. JR: Report ID: [id number] Reading Location: [place] [address] us Mayela Hocortney CONTENT CREATION MANAGER IMG CT PROCEDURES Final Resul t * eGFR (11/11/2023 4:18 AM MORTGAGE COLLECTOR) eGFR 102 mL/min/1. 73 m2 LETITIA BHANDARI Comment: Interpretive Data Reference Interval Normal >/= [...] last reviewed 2021. Blood 11/11/2023 4:18 AM MORTGAGE COLLECTOR 11/11/2023 4:21 AM MORTGAGE COLLECTOR us Jerry Ye MD LAB BLOOD ORDERABLES Final R esult [facility] [address] [facility] [address] * (ABNORMAL) Hemoglobin A1c (10/22/2023 3:52 PM MORTGAGE COLLECTOR) Hgb A1C 5.8(H) 4.0 - 5.6 % LETITIA BHANDARI Estimated Average Glucose 120 mg/dL LETITIA BHANDARI Comment: The ADA recommends reporting an estimated Average Glucose (eAG) with all Hemoglobin A1c results using the equation derived from a study of 507 normal and diabetic adults. Minority populations were underrepresented and children were not included. (Diabetes Care 31:9779-9851, 2008). The eAG is not equivalent to a fasting glucose. Blood 10/22/2023 3:52 PM MORTGAGE COLLECTOR 10/22/2023 4:58 PM MORTGAGE COLLECTOR Wilfred Roberts MD LAB BLOOD ORDERABLES Final Result LETITIA [facility] [address] [facility]. [place] [address] * Albumin Creatinine Ratio, Urine (08/09/2020 8:38 AM MORTGAGE COLLECTOR) Albumin Ur 23.3 mg/L CERNER AM H (SIL) Comment: Interpretive Data No reference range established. Current interpretive data was last revised 2019. Testing performed by: [address] [address] Creatinine Ur 159.8 mg/dL LETITIA AM[facility] (SIL) Comment: Interpretive Data No reference range established. Current interpretive data was last revised 2019. Testing performed by: [address] [address] Albumin Creatinine Ratio, Ur 15 1 - 29 mg/g LETITIA AMH (SIL) Comment:Testing performed by : [address] [id number] Urine 08/09/2020 8:38 AM MORTGAGE COLLECTOR 08/09/2020 12:22 PM MORTGAGE COLLECTOR Cat Persaud MD LAB URINE ORDERABLES F inal Result LETITIA LITTLE (SIL) 1 [facility] Department [place] [address] * (ABNORMAL) Lipid panel (08/09/2020 8:33 AM MORTGAGE COLLECTOR) Cholesterol 192 30 - 199 mg/dL LETITIA [facility] (SIL) Comment: Interpretive Data Ages < or [...] LDL, calculated 107 <=129 mg/dL LETITIA LITTLE (SIL) Comment: Interpretive Data [...] 2018. Non-HDL Cholesterol 140 mg/dL LETITIA LITTLE (PREMIUM) Comment: Interpretive Data Ages < or = [...] on 2018. Chol/HDL ratio 4 OFELIA LITTLE (PREMIUM) Blood specimen (specimen) 08/09/2020 8:33 AM MORTGAGE COLLECTOR 08/09/2020 8:36 AM MORTGAGE COLLECTOR Cat Persaud MD LAB BLOOD ORDERABLES F inal Result LETITIA ANABEL (PREMIUM) 1 [facility] Department [place] [address] * Screening Mammogram Bilateral W Fredi (03/29/2019 [...] Most Recently Relevant to Health Maintenance [facility] [employer] [employer] PLANS Address: [facility] [id number] [place] [id number] [employer] [facility] [facility] [employer] Address: [facility] [id number] [place] [address] [place] [address] [employer] [facility] EMPL[employer]EE HEALTH PLANS Address: [facility] [id number] [place] [address] Advance Directives For more information, please contact: [phone] * Full Code (Latest Code Status on File) Date Activated Date Inactivated Comments 11/10/2023 1:56 PM 11/11/2023 4:14 PM Care Teams Harvesting Contractor Relationship Specialty Start Date End Date Cat Persaud MD PCP - General 10/15/17
[2024-12-04 18:51] LABS: Basophils Absolute Auto 0.1 K/mm3 (0.0-0.1); Basophils Percent Auto 0.6 % (0.2-1.2); Eosinophils Absolute Auto 0.1 K/mm3 (0-0.3); Eosinophils Percent Auto 0.7 % (0-4.4); Hematocrit 31.6 % (37.0-47.0); Hemoglobin 9.8 g/dL (12.0-15.0); Immature Granulocyte Absolute 0.03 K/mm3 (0.00-0.031); Immature Granulocyte Percent A 0.4 % (0-0.5); Lymphocytes Absolute Auto 3.13 K/mm3 (0.9-3.2); Lymphocytes Percent Auto 38.5 % (18.3-44.2); Mean Corpuscular Hemoglobin 23.1 pg (26-34); Mean Corpuscular Volume 74.5 fl (80-100); Mean Platelet Volume 10.1 fl (7.4-10.4); Monocytes Absolute Auto 0.5 K/mm3 (0.1-0.6); Monocytes Percent Auto 5.5 % (2.6-8.5); Neutrophils Absolute Auto 4.4 K/mm3 (1.3-6.7); Neutrophils Percent Auto 54.3 % (45.5-73.1); Platelet Count Result 339 k/mm3 (150-375); Red Blood Count 4.24 M/mm3 (4.2-5.4); Red Cell Distribution Width 17.7 % (11.5-14.5); White Blood Count 8.1 K/mm3 (4.5-10.0)
[2024-12-04 19:23] LABS: Band Neutrophils Percent 0 % (0-6); Hypochromasia 1+; Platelet Estimate Adequate (Adequate); Schistocytes None Seen
[2024-12-04 19:30] LABS: Microcytosis 1+ (NORMAL)
[2024-12-04 19:31] LABS: Anisocytosis 3+
[2024-12-04 19:42] LABS: Vitamin D 25 Hydroxy 34.2 ng/mL
[2024-12-04 19:50] LABS: Creatinine Urine 170.3 mg/dL
[2024-12-04 19:51] LABS: Alanine Aminotransferase 25 U/L (6-35); Albumin Level 4.6 g/dL (3.5-5.1); Alkaline Phosphatase 81 U/L (38-126); Anion Gap 12 mmol/L (4-12); Aspartate Amino Transferase 30 U/L (14-36); Bilirubin,Total 0.5 mg/dL (0.2-1.3); Blood Urea Nitrogen 13 mg/dL (7-17); Calcium 9.5 mg/dL (8.4-10.2); Carbon Dioxide 25 mmol/L (22-30); Chloride 101 mmol/L (98-107); Cholesterol 198 mg/dL (0-200); Estimated Glomerular Filt Rate > 60; Glucose 139 mg/dL (65-110); HDL Direct 45 mg/dL; Potassium 4.2 mmol/L (3.4-5.0); Sodium 138 mmol/L (137-145); Triglycerides 165 mg/dL (<150)
[2024-12-04 19:56] LABS: MALB Creatinine Ratio 4.8 mg/g (0-30); Microalbumin Urine Random 8.1 mg/L (0-16.7)
[2024-12-04 20:04] LABS: LDL Cholesterol Direct 107 mg/dL
[2024-12-04 20:22] LABS: Hemoglobin A1C 8.1 % (<5.7)
== END 2024-12-04 15:16 | disposition home or self-care (01) ==
LOC: ANHGOSHLAB 15:16
PROVIDERS: PCP Family Medicine; Visit Provider Nurse Practitioner Family
DX: Z00.00 Encounter for general adult medical examination without abnormal findings (principal); Z12.11 Encounter for screening for malignant neoplasm of colon; I10 Essential (primary) hypertension; E55.9 Vitamin D deficiency, unspecified; R10.10 Upper abdominal pain, unspecified; E11.9 Type 2 diabetes mellitus without complications; E78.5 Hyperlipidemia, unspecified
CPT/HCPCS: 36415; 80053; 80061; 82043; 82306; 83036; 84443; 85025